=== PATIENT | female | born 1985 | race Caucasian/White ===

== ENCOUNTER 2021-08-11 11:20 | Emergency (ER) | payer OTHER ==
[~2021-08-11] VITALS: Ht 165.1 cm; Wt 60.8 kg
[2021-08-11 11:33] VITALS: BP_SYST 138
[2021-08-11 14:12] LABS: BILIRUBIN,URINE NEGATIVE (NEGATIVE); BLOOD, URINE NEGATIVE (NEGATIVE); CLARITY/URINE CLEAR (CLEAR); COLOR,URINE YELLOW (YELLOW); GLUCOSE,URINE NEGATIVE (NEGATIVE); KETONES,URINE NEGATIVE (NEGATIVE); LEUKOCYTE ESTERASE ,URINE NEGATIVE (NEGATIVE); NITRITE, URINE NEGATIVE (NEGATIVE); PROTEIN URINE NEGATIVE (NEGATIVE); UROBILINOGEN,URINE 0.2 (0.2-1.0)
[2021-08-11 16:10] VITALS: BP_SYST 133
== END 2021-08-11 16:10 | disposition left against medical advice (07) ==
LOC: SED 11:20
DX: O20.0 Threatened abortion (principal); O26.891 Other specified pregnancy related conditions, first trimester; O33.7XX0 Maternal care for disproportion due to other fetal deformities, not applicable or unspecified; Z3A.01 Less than 8 weeks gestation of pregnancy
CPT/HCPCS: 36415; 76801; 76817; 81003; 81025; 84702; 99284

== ENCOUNTER 2022-11-21 20:05 | Emergency (ER) | payer MEDICAID, OTHER ==
[~2022-11-21] VITALS: Ht 162.6 cm; Wt 78.5 kg
[2022-11-21 20:10] VITALS: BP_SYST 107; PULSE 65; RESP 19; TEMP 97.8; O2SAT 99
[2022-11-21] MEDS ORDERED: NAPR-1172 PO (23:27)
[2022-11-21] MEDS ORDERED: IBUPROFEN 600 MG TABLET PO ONE (23:30)
[2022-11-21 23:37] VITALS: BP_SYST 113; PULSE 66; RESP 15; TEMP 97.5; O2SAT 100
== END 2022-11-21 23:40 | disposition home or self-care (01) ==
LOC: SED 20:05
DX: S92.422A Displaced fracture of distal phalanx of left great toe, initial encounter for closed fracture (principal); Z79.899 Other long term (current) drug therapy; W20.8XXA Other cause of strike by thrown, projected or falling object, initial encounter; Y93.89 Activity, other specified; Y92.89 Other specified places as the place of occurrence of the external cause; Y99.8 Other external cause status
CPT/HCPCS: 99283